=== PATIENT | male | born 1950 | race Caucasian/White ===

== ENCOUNTER 2020-02-23 06:25 | Day surgery (SDC) | payer MEDICARE, BC ==
[2020-02-20 10:56] LABS: BASOPHILS % (AUTO) 0.4 % (0-1); EOSINOPHILS # (AUTO) 0.2 X10'3 (0-0.9); EOSINOPHILS % (AUTO) 3.7 % (0-6); HEMATOCRIT 43.4 % (42.0-52.0); HEMOGLOBIN 14.4 g/dl (14.0-17.9); LYMPHOCYTES # (AUTO) 2.1 X10'3 (1.1-4.8); LYMPHOCYTES % (AUTO) 39.7 % (21-51); MEAN CORPUSCULAR HEMOGLOBIN 28.6 PG (27.0-31.0); MEAN CORPUSCULAR HGB CONC 33.2 g/dL (33.0-36.5); MEAN CORPUSCULAR VOLUME 86.1 FL (78-98); MEAN PLATELET VOLUME 10.7 FL (7.4-10.4); MONOCYTES # (AUTO) 0.5 X10'3 (0-0.9); MONOCYTES % (AUTO) 8.9 % (2-12); NEUTROPHILS # (AUTO) 2.5 X10'3 (1.8-7.7); NEUTROPHILS % (AUTO) 47.3 % (42-75); PLATELET COUNT 130 X10'3 (140-440); RED BLOOD COUNT 5.05 X10'6 (4.70-6.10); RED CELL DISTRIBUTION WIDTH 14.4 % (11.5-14.5); WHITE BLOOD COUNT 5.2 X10'3 (4.5-11.0)
[2020-02-20 11:06] LABS: PARTIAL THROMBOPLASTIN TIME 29 SECONDS (22-32)
[2020-02-20 11:11] LABS: ALBUMIN 3.7 G/DL (3.4-5.0); ANION GAP 11 (8-16); BLOOD UREA NITROGEN 24 MG/DL (7-18); BUN/CREATININE RATIO 18.6 (5.4-32.0); CALCIUM 8.7 MG/DL (8.5-10.1); CHLORIDE 109 MMOL/L (99-107); CREATININE 1.29 MG/DL (0.60-1.10); GLUCOSE 100 MG/DL (70-104); POTASSIUM 3.7 MMOL/L (3.5-5.1); SODIUM 145 MMOL/L (135-145); TOTAL CARBON DIOXIDE 24.7 MMOL/L (24-32); eGFR 55 ML/MIN
[~2020-02-23] VITALS: Ht 170.2 cm; Wt 72.8 kg
[2020-02-23] VITALS (8 sets, daily range): BP systolic 143–152; BP diastolic 82–94
[2020-02-23] MEDS ORDERED: diphenhydrAMINE 25mg capsule PO PRN (06:45)
[2020-02-23] MEDS ORDERED: LORazepam 0.5 MG tablet PO PRN (06:45)
[2020-02-23] MEDS ORDERED: normal saline 1,000 ML IV SCH (06:45)
[2020-02-23] MEDS ORDERED: MAGN200T5 PO (06:54)
[2020-02-23] MEDS ORDERED: CHOL100046 PO (06:54)
[2020-02-23] MEDS ORDERED: METF-436 PO (06:54)
[2020-02-23] MEDS ORDERED: BOSW1POW PO (06:54)
[2020-02-23] MEDS ORDERED: ZOLP5TAB8 PO (06:54)
[2020-02-23] MEDS ORDERED: ASCO-283 PO (06:54)
[2020-02-23] MEDS ORDERED: ROSU40TA PO (06:54)
[2020-02-23] MEDS ORDERED: METO-395 PO (06:54)
[2020-02-23] MEDS ORDERED: LIDOcaine 1% (10mg/ml)w/preservative injection 20ml MDV ONE (08:27)
[2020-02-23] MEDS ORDERED: midazolam 2 mg/2 ml injection ONE (08:27)
[2020-02-23] MEDS ORDERED: iohexol 350MG/ML 100ml bottle IV ONE (08:27)
[2020-02-23] MEDS ORDERED: fentaNYL/PF 50MCG/1 ML 2ML syringe ONE (08:27)
[2020-02-23] MEDS ORDERED: heparin 1,000 UNITS/NS 500ml 500 ML ONE ×2 (08:28)
[2020-02-23] MEDS ORDERED: heparin 1,000unit/ml 10ml vial 10 ML ONE (08:47)
[2020-02-23] MEDS ORDERED: verapamil 2.5 mg/ml inj IV ONE (08:47)
[2020-02-23] MEDS ORDERED: nitroGLYCERIN-Tridil 50MG/D5W 250 ML IV ONE (08:47)
[2020-02-23] MEDS ORDERED: nitroGLYCERIN 0.4mg SUBLingual tab SL PRN (10:35)
[2020-02-23] MEDS ORDERED: OXAZEpam 15mg capsule PO PRN (10:35)
[2020-02-23] MEDS ORDERED: ondansetron/PF 4mg/2ml inj IV PRN (10:35)
[2020-02-23] MEDS ORDERED: proCHLORperazine 10 MG/2 ml inj IV PRN (10:35)
== END 2020-02-23 12:26 | disposition home or self-care (01) ==
LOC: SSTAY O 06:25
PROVIDERS: ATTEND Internal Medicine Interventional Cardiology
DX: I35.0 Nonrheumatic aortic (valve) stenosis (principal); I25.10 Atherosclerotic heart disease of native coronary artery without angina pectoris; E11.9 Type 2 diabetes mellitus without complications; I10 Essential (primary) hypertension; E78.5 Hyperlipidemia, unspecified; G47.00 Insomnia, unspecified; Z79.899 Other long term (current) drug therapy; Z79.01 Long term (current) use of anticoagulants; Z79.84 Long term (current) use of oral hypoglycemic drugs
CPT/HCPCS: 36415; 80048; 85025; 85610; 85730; 93005; 93454; 99152; 99153; C1769; J1644; J2001; J2250; J3010; J7030; Q0163; Q9967; A4620; A6258; J3490

== ENCOUNTER 2021-06-18 11:00 | Day surgery (SDC) | payer MEDICARE, BC ==
[2021-06-13 11:26] LABS: BASOPHILS % (AUTO) 0.4 % (0-1); EOSINOPHILS # (AUTO) 0.2 X10'3 (0-0.9); HEMATOCRIT 43.2 % (42.0-52.0); HEMOGLOBIN 14.7 g/dl (14.0-17.9); LYMPHOCYTES % (AUTO) 37.5 % (21-51); MEAN CORPUSCULAR HEMOGLOBIN 29.1 PG (27.0-31.0); MEAN CORPUSCULAR VOLUME 85.7 FL (78-98); MEAN PLATELET VOLUME 10.1 FL (7.4-10.4); MONOCYTES # (AUTO) 0.3 X10'3 (0-0.9); MONOCYTES % (AUTO) 6.5 % (2-12); NEUTROPHILS # (AUTO) 2.7 X10'3 (1.8-7.7); NEUTROPHILS % (AUTO) 51.6 % (42-75); PLATELET COUNT 146 X10'3 (140-440); RED BLOOD COUNT 5.04 X10'6 (4.70-6.10); RED CELL DISTRIBUTION WIDTH 13.8 % (11.5-14.5); WHITE BLOOD COUNT 5.3 X10'3 (4.5-11.0)
[2021-06-13 11:32] LABS: GLUCOSE 173 MG/DL (70-104)
[2021-06-13 11:33] LABS: ALBUMIN 3.7 G/DL (3.4-5.0); ANION GAP 5 (8-16); BLOOD UREA NITROGEN 18 MG/DL (7-18); BUN/CREATININE RATIO 15.1 (5.4-32.0); CHLORIDE 106 MMOL/L (99-107); CREATININE 1.19 MG/DL (0.60-1.10); POTASSIUM 4.2 MMOL/L (3.5-5.1); SODIUM 143 MMOL/L (135-145); TOTAL CARBON DIOXIDE 31.6 MMOL/L (24-32); eGFR 61 ML/MIN
[2021-06-13 11:36] LABS: PARTIAL THROMBOPLASTIN TIME 29 SECONDS (22-32)
[~2021-06-18] VITALS: Ht 170.2 cm; Wt 71.2 kg
[2021-06-18] VITALS (9 sets, daily range): BP systolic 120–142; BP diastolic 67–90
[~2021-06-18 11:00] MED LIST: ASCO-283 PO; BOSW1POW PO; CHOL100046 PO; MAGN200T5 PO; METF-436 PO; METO-395 PO; ROSU40TA PO; ZOLP5TAB8 PO
[2021-06-18] MEDS ORDERED: LORazepam 0.5 MG tablet PO PRN (11:25)
[2021-06-18] MEDS ORDERED: normal saline 1,000 ML IV SCH (11:25)
[2021-06-18] MEDS ORDERED: LIDOcaine/PRILOcaine 5gm cream TP ONE (11:25)
[2021-06-18] MEDS ORDERED: diphenhydrAMINE 25mg capsule PO PRN (11:25)
[2021-06-18] MEDS ORDERED: [UNRECOGNIZED DRUG - OTHER] PO (11:58)
[2021-06-18] MEDS ORDERED: TURM1POW PO (11:58)
[2021-06-18] MEDS ORDERED: CYAN-51 PO (11:58)
[2021-06-18] MEDS ORDERED: nitroGLYCERIN-Tridil 50MG/D5W 250 ML IV ONE (12:25)
[2021-06-18] MEDS ORDERED: iohexol 350MG/ML 100ml bottle IV ONE (12:26)
[2021-06-18] MEDS ORDERED: verapamil 2.5 mg/ml inj IV ONE (12:26)
[2021-06-18] MEDS ORDERED: midazolam 1 mg/ML 2ml injection ONE (12:26)
[2021-06-18] MEDS ORDERED: heparin 1,000unit/ml 10ml vial 10 ML ONE (12:26)
[2021-06-18] MEDS ORDERED: LIDOcaine 1% (10mg/ml)w/preservative injection 20ml MDV ONE (12:26)
[2021-06-18] MEDS ORDERED: fentaNYL/PF 50MCG/1 ML 2ML syringe ONE (12:26)
[2021-06-18] MEDS ORDERED: normal saline 1000ml 1,000 ML IV SCH (14:35)
[2021-06-18] MEDS ORDERED: HYDROcodone/acetaminophen 5mg/325mg tablet PO PRN (14:35)
[2021-06-18] MEDS ORDERED: ondansetron/PF 4mg/2ml inj IV PRN (14:35)
[2021-06-18] MEDS ORDERED: OXAZEpam 15mg capsule PO PRN (14:35)
[2021-06-18] MEDS ORDERED: proCHLORperazine 10 MG/2 ml inj IV PRN (14:35)
[2021-06-18] MEDS ORDERED: HYDROcodone/acetaminophen 10/325mg tab PO PRN (14:35)
[2021-06-18] MEDS ORDERED: acetaminophen 325mg tablet PO PRN (14:35)
== END 2021-06-18 17:50 | disposition home or self-care (01) ==
LOC: SSTAY O 11:00
PROVIDERS: ATTEND Internal Medicine Interventional Cardiology
DX: I35.0 Nonrheumatic aortic (valve) stenosis (principal); I25.10 Atherosclerotic heart disease of native coronary artery without angina pectoris; I10 Essential (primary) hypertension; E78.5 Hyperlipidemia, unspecified; G47.00 Insomnia, unspecified; Z79.01 Long term (current) use of anticoagulants; Z79.84 Long term (current) use of oral hypoglycemic drugs; Z79.899 Other long term (current) drug therapy
CPT/HCPCS: 36415; 80048; 85025; 85610; 85730; 93005; 93454; 99152; C1769; C1894; J1644; J2001; J2250; J3010; J7030; Q0163; Q9967; A4620; A5120; J3490

== ENCOUNTER 2021-08-16 09:55 | Outpatient (CLI) | payer MEDICARE, BC ==
[~2021-08-16 09:55] MED LIST changes: -BOSW1POW PO; +CYAN-51 PO; +TURM1POW PO; +[UNRECOGNIZED DRUG - OTHER] PO
[2021-08-16 10:52] LABS: BASOPHILS % (AUTO) 0.7 % (0-1); EOSINOPHILS # (AUTO) 0.2 X10'3 (0-0.9); EOSINOPHILS % (AUTO) 4.5 % (0-6); HEMATOCRIT 44.8 % (42.0-52.0); LYMPHOCYTES # (AUTO) 2.1 X10'3 (1.1-4.8); LYMPHOCYTES % (AUTO) 38.9 % (21-51); MEAN CORPUSCULAR HGB CONC 33.4 g/dL (33.0-36.5); MEAN CORPUSCULAR VOLUME 86.8 FL (78-98); MEAN PLATELET VOLUME 9.9 FL (7.4-10.4); MONOCYTES # (AUTO) 0.4 X10'3 (0-0.9); NEUTROPHILS # (AUTO) 2.7 X10'3 (1.8-7.7); NEUTROPHILS % (AUTO) 48.9 % (42-75); PLATELET COUNT 165 X10'3 (140-440); RED BLOOD COUNT 5.16 X10'6 (4.70-6.10); RED CELL DISTRIBUTION WIDTH 14.2 % (11.5-14.5); WHITE BLOOD COUNT 5.5 X10'3 (4.5-11.0)
[2021-08-16 10:56] LABS: PARTIAL THROMBOPLASTIN TIME 28 SECONDS (22-32)
[2021-08-16 11:02] LABS: ALANINE AMINOTRANSFERASE 19 U/L (12-78); ALBUMIN 3.9 G/DL (3.4-5.0); ALBUMIN/GLOBULIN RATIO 0.9 (1.1-1.5); ALKALINE PHOSPHATASE 66 IU/L (46-116); ANION GAP 9 (8-16); ASPARTATE AMINO TRANSFERASE 24 U/L (10-37); BILIRUBIN,TOTAL 0.6 MG/DL (0.1-1.0); BLOOD UREA NITROGEN 20 MG/DL (7-18); BUN/CREATININE RATIO 17.4 (5.4-32.0); CALCIUM 9.3 MG/DL (8.5-10.1); CHLORIDE 104 MMOL/L (99-107); CREATININE 1.15 MG/DL (0.60-1.10); GLUCOSE 132 MG/DL (70-104); POTASSIUM 4.1 MMOL/L (3.5-5.1); SODIUM 143 MMOL/L (135-145); TOTAL PROTEIN 8.3 G/DL (6.4-8.2); eGFR 63 ML/MIN
[2021-08-16] MEDS ORDERED: IODIXANOL 320 MG/ML INFUS..BTL 50ML IV ONE (11:25)
[2021-08-16] MEDS ORDERED: IODIXANOL 320 MG/ML INFUS..BTL 100ML IV ONE (11:25)
[2021-08-16] MEDS ORDERED: MESSAGE TO NURSING PO SCH (11:45)
== END 2021-08-16 23:59 | disposition home or self-care (01) ==
LOC: RAD 09:55
PROVIDERS: ATTEND Internal Medicine Cardiovascular Disease
DX: I35.0 Nonrheumatic aortic (valve) stenosis (principal); R06.02 Shortness of breath; I65.29 Occlusion and stenosis of unspecified carotid artery; N32.89 Other specified disorders of bladder; Z20.822 Contact with and (suspected) exposure to COVID-19
CPT/HCPCS: 36415; 71046; 71275; 74174; 80053; 85025; 85610; 85730; 87635; 94010; 94727; 94729; C9803; Q9967

== ENCOUNTER → 2024-10-18 | Outpatient (CLI) | payer BC, MEDICARE, SELFPAY ==
[~2024-10-18] MED LIST changes: +ASPI81TA53 PO; +CYAN-104 PO; -CYAN-51 PO; +DARI50TA PO; +EMPA10TA PO; -METF-436 PO; -ZOLP5TAB8 PO
== END | disposition home or self-care (01) ==
LOC: VAS 10:51
PROVIDERS: ATTEND Radiology Diagnostic Radiology
DX: Z13.9 Encounter for screening, unspecified (principal)